=== PATIENT | female | born 1940 | race Caucasian/White ===

== ENCOUNTER 2016-08-31 08:45 | Emergency (ER) | payer MEDICARE, MEDICAID ==
--- NOTE | 2016-08-31 08:56 | EDM.PDOC ---
ED HPI GENERAL MEDICAL PROBLEM - General Chief Complaint: ENT Problem Stated Complaint: [id number] SORE THROAT Time Seen by Provider: 08/31/16 08:55 Source of Information: Reports: Patient, RN, RN Notes Reviewed History Limitations: Reports: No Limitations - History of Present Illness INITIAL COMMENTS - FREE TEXT/NARRATIVE: C/O sore throat x3 days. Pt was seen in clinic 2 days ago and Tx'd with Amoxicillin 500mg but is not better. 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: Other Medication(s) - Related Data Allergies Allergy/AdvReac Type Severity Reaction Status Date / Time Sulfa (Sulfonamide Allergy Rash Verified 07/28/14 19:06 Antibiotics) Home Meds: Home Meds Acyclovir 400 mg PO ASDIRECTED 07/28/14 [History] Cyclobenzaprine [Flexeril] 1 tab PO BEDTIME 07/28/14 [History] Fluticasone Propionate [Flonase] 2 sprays NASBOTH DAILY 07/28/14 [History] Meloxicam [Meloxicam] 1 tab PO DAILY 07/28/14 [History] Methocarbamol [Methocarbamol] 1 tab PO QID PRN 07/28/14 [History] Omeprazole [Omeprazole] 1 tab PO DAILY PRN 07/28/14 [History] Temazepam [Restoril] 1 tab PO BEDTIME 07/28/14 [History] Venlafaxine [Venlafaxine ER] 75 mg PO DAILY 07/28/14 [History] Venlafaxine [Venlafaxine ER] 150 mg PO DAILY 07/28/14 [History] metFORMIN HCl [Metformin HCl] 0.5 tab PO BID 07/28/14 [History] oxyCODONE HCl/Acetaminophen [Percocet 10-325 MG] 1 tab PO Q4H PRN 07/28/14 [ History] Past Medical History Other Genitourinary History: states has issues with bladder control Other Hematologic History: state got a call on Friday from her oncologist that her blood counts were really low and she is scheduled for a transfusion on the of this month. Social & Family History - Tobacco Use Smoking Status *Q: Never Smoker Second Hand Smoke Exposure: No - Alcohol Use Days Per Week of Alcohol Use: 0 - Recreational Drug Use Recreational Drug Use: No - Living Situation & Occupation Living situation: Reports: with Family Occupation: Retired ED ROS ENT - Review of Systems Review Of Systems: ROS reveals no pertinent complaints other than HPI. ED EXAM, ENT - Physical Exam Exam: See Below Exam Limited By: No Limitations General Appearance: Alert, WD/WN, No Apparent Distress Eye Exam: Bilateral Eye: Normal Inspection Ears: Normal External Exam, Hearing Grossly Normal Nose: Normal Inspection, Normal Mucousa, No Blood Mouth/Throat: Normal Gums, Normal Lips, Normal Teeth, Pharyngeal Erythema, Throat Pain. No: Tonsillar Exudates Head: Atraumatic, Normocephalic Neck: Normal Inspection, Supple, Non-Tender, Full Range of Motion Respiratory/Chest: No Respiratory Distress, Lungs Clear, Normal Breath Sounds, No Accessory Muscle Use, Chest Non-Tender Cardiovascular: Regular Rate, Rhythm, No Edema, Tachycardia Neurological: Alert, Oriented, No Motor/Sensory Deficits Psychiatric: Normal Affect, Normal Mood Skin: Warm, Dry, Intact, Normal Color, No Rash Course - Vital Signs Last Recorded V/S: Last Vital Signs Temp 36.4 C 08/31/16 09:00 Pulse 106 H 08/31/16 09:00 Resp 16 08/31/16 09:00 BP 132/61 08/31/16 09:00 Pulse Ox 99 08/31/16 09:00 - Orders/Labs/Meds Orders: Active Orders 24 hr Category Date Time Status GI Cocktail Med 08/31/16 09:38 Once 30 ml PO ONETIME ONE Pen G Johan/Pen G Procaine [Bicillin C-R 600/600] Med 08/31/16 09:36 Once 2.4 millunits IM ONETIME ONE Departure - Departure Time of Disposition: 09:44 Disposition: Home, Self-Care 01 Condition: Good Clinical Impression: Strep pharyngitis - Discharge Information Instructions: Strep Throat, [id number] Forms: ED Department Discharge Additional Instructions: Continue Amoxicillin as prescribed. Frequent saltwater gargles until improved. Use over the counter Cepacol Throat Lozenges as needed. Follow up in clinic if not improved in 2 days. - My Orders Last 24 Hours: My Active Orders 08/31/16 09:36 Pen G Johan/Pen G Procaine [Bicillin C-R 600/600] 2.4 millunits IM ONETIME ONE 08/31/16 09:38 GI Cocktail 30 ml PO ONETIME ONE - Assessment/Plan Last 24 Hours: My Active Orders 08/31/16 09:36 Pen G Johan/Pen G Procaine [Bicillin C-R 600/600] 2.4 millunits IM ONETIME ONE 08/31/16 09:38 GI Cocktail 30 ml PO ONETIME ONE
[2016-08-31 09:01] VITALS: BP 132/61
[2016-08-31] MEDS ORDERED: Penicillin G Benzathine/Procaine 600-600 1.2 Millunits/2 ML Syringe IM ONE (09:36)
[2016-08-31] MEDS ORDERED: GI Cocktail Oral Solution 30 ML PO ONE (09:38)
== END 2016-08-31 10:04 | disposition home or self-care (01) ==
LOC: DL.ED 08:45
DX: J02.0 Streptococcal pharyngitis (principal); Z88.2 Allergy status to sulfonamides; Z79.899 Other long term (current) drug therapy
CPT/HCPCS: 87430; 96372; 99283; A9270; J0558